=== PATIENT | female | born 1960 | race Caucasian/White ===

== ENCOUNTER 2021-03-17 11:28 | Outpatient (CLI) | payer OTHER, SELFPAY | END 2021-03-17 11:29 | disposition home or self-care (01) | LOC: ANHCOVIDVC 11:28 | PROVIDERS: PCP Internal Medicine | DX: Z23 Encounter for immunization (principal) | CPT/HCPCS: 0001A; 91300 ==

== ENCOUNTER 2021-04-07 11:30 | Outpatient (CLI) | payer OTHER, SELFPAY | END 2021-04-07 11:31 | disposition home or self-care (01) | LOC: ANHCOVIDVC 11:30 | PROVIDERS: PCP Internal Medicine | DX: Z23 Encounter for immunization (principal) | CPT/HCPCS: 0002A; 91300 ==